=== PATIENT | male | born 2005 | race Caucasian/White ===

== ENCOUNTER 2024-08-24 15:21 | Inpatient (IN) | payer OTHER, SELFPAY ==
[2024-08-24 15:51] VITALS: BP 140/00; PULSE 60; O2SAT 99
[2024-08-24 16:12] VITALS: BP 173/89; PULSE 68; RESP 18; TEMP 36.8; O2SAT 97; BMI 23.5
[2024-08-24 17:08] LABS: Appearance Urine Clear; Color Urine Yellow; Glucose Urine UA Negative (Negative); Leukocyte Esterase Urine Negative (Negative); Nitrite Urine Negative (Negative); PH 5.5 (5.0-9.0); Specific Gravity - Urine <= 1.005 (1.005-1.025); Urine Blood Negative (Negative); Urine Ketones Negative (Negative); Urine Protein Negative (Neg-Trace)
[2024-08-24 17:10] LABS: Amphetamine Screen Urine Not Detected (Not Detect); Barbiturates, Urine Not Detected (Not Detect); Benzodiazepines Screen Urine Not Detected (Not Detect); Buprenorphine Scr Not Detected (Not Detect); Cannabinoid Screen Urine POSITIVE (Not Detect); Cocaine Screen Urine Not Detected (Not Detect); Fentanyl, urine Not Detected (Not Detect); Methadone Screen, Urine Not Detected (Not Detect); Opiate Screen Urine Not Detected (Not Detect); Oxycodone Screen Urine Not Detected (Not Detect); Phencyclidine Screen Urine Not Detected (Not Detect)
--- NOTE | 2024-08-24 17:54 | ED_ITS ---
HPI - Psych General Chief Complaint: Psychiatric Symptoms Stated Complaint: SI Time Seen by Provider: 08/24/24 16:03 Source: patient and EMS Mode of arrival: EMS Limitations: no limitations History of Present Illness ED Provider: Dr. Sherrie Madrid HPI Narrative: Patient comes to the emergency room via ambulance. At his job [employer], patient states that he made SI statements. Patient states that he said he went to kill himself. However, patient states that he really did not mean it, patient states that he has did not know how to express his frustration. They sent him on a Section 12. Related Data Allergies Allergy/AdvReac Type Severity Reaction Status Date / Time No Known Allergies Allergy Verified 08/24/24 16:15 Review of Systems 2 Review of Systems: Constitutional : No Weight loss, No Fever, No Chills, No Night Sweats, No Fatigue, No Malaise ENT/Mouth : No Hearing loss, No Ear Pain, No Nasal Congestion, No Sinus Pain, No Hoarseness, No sore throat, No Rhinorrhea, No Swallowing Difficulty Eyes: No Eye Pain, No Swelling, No Redness, No Foreign Body, No Discharge, No Vision Changes Cardiovascular : No Chest Pain, No SOB, No Dyspnea on Exertion, No Orthopnea, No Edema, No Palpitations Respiratory : No Cough, No Sputum, No Wheezing, No Smoke Exposure, No Dyspnea Gastrointestinal : No Nausea, No Vomiting, No Diarrhea, No Constipation, No abdominal Pain, No Hematochezia, No Melena Genitourinary : no irregular bleeding, No Dysuria, No Urinary Frequency, No Hematuria, No Urinary Incontinence, No Urgency, No Flank Pain, No Urinary Flow Changes, No Hesitancy Musculoskeletal : No joint pain, No Myalgias, No Joint Swelling Skin : No Skin Lesions, No rash Neuro : No Weakness, No Numbness, No Paresthesias, No Loss of Consciousness, No Dizziness, No Headache Psych : Complaining of anxiety, depression, denies SI or HI. However he admits that he made SI statements. Heme/Lymph: No Bruising, No Bleeding,No Lymphadenopathy Endocrine : No Polyuria, No Polydipsia, No Temperature Intolerance PMFSH Past Medical History Medical History (Updated 08/24/24 @ 20:30 by Sherrie Madrid MD) Depression Social History Social History Smoked in Last 30 Days: No Use of substances other than those prescribed or required for medical reasons: No Advance Directives: No Advance Directives Information Provided: No Do you have a plan to hurt others: No Plan Physical Exam 2 Vital Signs: Vital Signs: Last Vital Signs Temp 98.2 F 08/24/24 16:12 Pulse 68 08/24/24 16:12 Resp 18 08/24/24 16:12 BP 173/89 H 08/24/24 16:12 Pulse Ox 97 08/24/24 16:12 O2 Del Method Room Air 08/24/24 16:12 BMI result Body Mass Index 23.5 Const: Other: Appearance: Alert. Oriented X3. No acute distress. Eyes: Pupils equal, round and reactive to light. ENT: Pharynx normal. Neck: Normal inspection. Neck supple. No lymph nodes noted. No crepitus CVS: Normal heart rate and rhythm. Pulses normal. Normal S1 and S2 Respiratory: No respiratory distress. Breath sounds normal. No Wheezing. No rales Abdomen: Soft and nontender. No rigidity. No distention. Skin: Skin warm and dry. Normal skin color. Normal skin turgor. Extremities: No lower extremity edema. No Lacerations. No Rash Neuro: Oriented X 3. No motor deficit. No sensory deficit. Moving all extremities. No slurred speech. CN 2 through 12 grossly intact Psych: calm, cooperative, normal affect Medical Decision Making Medical Decision Making [facility] Narrative: My interpretation of labs: Patient's hematology, chemistry, urinalysis negative. ETOH negative, urine toxicology positive for THC Patient is on a Section 12, waiting for the care team We were informed by the care team that they had already seen the patient in the community in that he is on a Section 12 and inpatient bed search. Patient very upset, patient was not informed that he was an inpatient bed search. Patient states that he was told that he would be coming to the emergency room to get evaluated and then to be discharged. Also, we were not informed either that patient was not inpatient bed search, we just found out at this time. Patient agreeable to take anxiety medications, p.o. Ativan and Benadryl. Differential Diagnosis Differential Diagnoses: The differential diagnosis associated with the presentation includes (Anxiety, depression, suicidal ideation) Admission/Observation Consideration of admission/observation: Escalation of care including admission/observation considered (Patient is on a Section 12, inpatient bed search) Lab Data [facility] Lab Attestation statement: I reviewed the patient's lab results. 08/24/24 17:52 08/24/24 17:52 Labs: Lab Results 08/24/24 08/24/24 Range/Units 16:56 17:52 WBC 7.5 (4.8-10.8) X10*3/uL RBC 5.46 (4.60-5.80) X10*6/uL Hgb 16.4 (14.0-18.0) g/dl Hct 48.6 (42.0-52.0) % MCV 89.0 (80.0-98.0) fL MCH 30.0 (27.0-33.0) pg MCHC 33.7 (31.0-36.0) g/dl RDW 12.8 (11.0-16.0) % Plt Count 262 (160-400) X10*3/uL MPV 9.3 L (9.4-12.4) fL Immature Gran % (Auto) 0.4 (0.0-0.4) % Neut % (Auto) 61.1 (45-73) % Lymph % (Auto) 29.5 (20-40) % [place] % (Auto) 5.6 (2-11) % Eos % (Auto) 2.5 (0-4) % Baso % (Auto) 0.9 (0-2) % Lymph # (Auto) 2.2 (1.2-4.9) X10*3/uL [place] # (Auto) 0.4 (0.1-1.2) X10*3/uL Eos # (Auto) 0.2 (0.0-0.4) X10*3/uL Baso # (Auto) 0.1 (0.0-0.2) X10*3/uL Abs Immat Gran (auto) 0.03 (0.00-0.03) X10*3/uL Absolute Neuts (auto) 4.6 (2.0-8.3) x10*3/uL Absolute Nucleated RBC 0.000 (0.0-0.012) X10*3/uL Nucleated RBC % (auto) 0.0 (0.0-0.2) /100WBC Sodium 142 (135-145) mmol/L Potassium 4.0 (3.3-5.1) mmol/L Chloride 107 (96-108) mmol/L Carbon Dioxide 27 (22-29) mmol/L Anion Gap 12 (12-20) BUN 10 (9-16) mg/dL Creatinine 0.77 (0.5-1.4) mg/dL Estim Creat Clear Calc 143.0 Estimated GFR > 60 Random Glucose 94 (60-115) mg/dL Calcium 9.4 (8.4-10.2) mg/dL Total Bilirubin 0.6 (0.0-1.0) mg/dL Direct Bilirubin 0.1 (0.0-0.5) mg/dL AST 26 (5-37) U/L ALT 44 H (0-40) U/L Alkaline Phosphatase 76 (39-117) U/L Total Protein 7.8 (6.5-8.0) g/dL Albumin 4.8 (3.5-5.0) g/dL Urine Color Yellow Urine Appearance Clear Urine pH 5.5 (5.0-9.0) Ur Specific [place] <= 1.005 (1.005-1.025) Urine Protein Negative (Neg-Trace) mg/dL Urine Glucose (UA) Negative (Negative) mg/dL Urine Ketones Negative (Negative) mg/dL Urine Blood Negative (Negative) Urine Nitrite Negative (Negative) Ur Leukocyte Esterase Negative (Negative) Urine Opiates Screen Not Detected (Not Detect) Ur Buprenorphine Scrn Not Detected (Not Detect) ng/mL Ur Oxycodone Screen Not Detected (Not Detect) ng/mL Urine Methadone Screen Not Detected (Not Detect) ng/mL Urine Fentanyl Screen Not Detected (Not Detect) Ur Barbiturates Screen Not Detected (Not Detect) Ur Phencyclidine Scrn Not Detected (Not Detect) Ur Amphetamines Screen Not Detected (Not Detect) U Benzodiazepines Scrn Not Detected (Not Detect) Urine Cocaine Screen Not Detected (Not Detect) U Marijuana (THC) Screen POSITIVE H (Not Detect) Ethyl Alcohol < 10 mg/dL Discharge Plan Discharge Clinical Impression: Anxiety and depression Patient Disposition: Still a Patient Interventions: Sully-Suicide Risk Severity Scale Last Done: 08/24/24 16:52 Print Language: Nepali
[2024-08-24 17:57] LABS: MANUAL DIFF FLAG NO
[2024-08-24 18:02] LABS: Basophils Absolute Auto 0.1 X10*3/uL (0.0-0.2); Basophils Percent Auto 0.9 % (0-2); Eosinophils Absolute Auto 0.2 X10*3/uL (0.0-0.4); Eosinophils Percent Auto 2.5 % (0-4); Hematocrit 48.6 % (42.0-52.0); Hemoglobin 16.4 g/dl (14.0-18.0); Imm Gran Abs Auto 0.03 X10*3/uL (0.00-0.03); Imm Gran Pct Auto 0.4 % (0.0-0.4); Lymphocytes Absolute Auto 2.2 X10*3/uL (1.2-4.9); Lymphocytes Percent Auto 29.5 % (20-40); Mean Corpuscular HGB Conc 33.7 g/dl (31.0-36.0); Mean Platelet Volume 9.3 fL (9.4-12.4); Monocytes Absolute Auto 0.4 X10*3/uL (0.1-1.2); Monocytes Percent Auto 5.6 % (2-11); Neutrophils Absolute Auto 4.6 x10*3/uL (2.0-8.3); Neutrophils Percent Auto 61.1 % (45-73); Platelet Count 262 X10*3/uL (160-400); Red Blood Count 5.46 X10*6/uL (4.60-5.80); Red Cell Distribution Width 12.8 % (11.0-16.0); White Blood Count 7.5 X10*3/uL (4.8-10.8)
[2024-08-24 18:13] LABS: Alanine Aminotransferase 44 U/L (0-40); Albumin Level 4.8 g/dL (3.5-5.0); Alkaline Phosphatase 76 U/L (39-117); Anion Gap 12 (12-20); Aspartate Amino Transferase 26 U/L (5-37); Bilirubin Direct 0.1 mg/dL (0.0-0.5); Bilirubin Total 0.6 mg/dL (0.0-1.0); Blood Urea Nitrogen 10 mg/dL (9-16); Calcium 9.4 mg/dL (8.4-10.2); Carbon Dioxide 27 mmol/L (22-29); Chloride 107 mmol/L (96-108); Estimated Glomerular Filt Rate > 60; Ethanol < 10 mg/dL; Glucose Random 94 mg/dL (60-115); Sodium 142 mmol/L (135-145); Total Protein 7.8 g/dL (6.5-8.0)
--- NOTE | 2024-08-24 19:48 | PC.NURSE ---
Patient reports increased anxiety due to being in ED. Expressing frustration with being brought to ED and not talking to anyone from crisis/psych after being sent here from [facility]. Pt endorsed making vague SI statements at [facility] but states that he has difficulty expressing himself verbally at times. He stated I just need help to talk to someone, I don't want to hurt or kill myself or anyone else, but being here is getting me even more anxious and is making me worse! I feel like a prisoner. I can't have my phone to watch [employer] or anything, I'm in the hallway, and I'm being treated like a prisoner! [facility] told me that I'd be here for a few hours at most and then go home, and I've been here since 3pm . Offered the patient food/fluids, which he declined at this time. I spoke with CARE team staff members Kate & Cesar who came to patient's bedside to speak with him. Patient is anxious, but cooperating at this time. Sitter remains present. Section [address] CARE team to follow up and review the evaluation from earlier today to discuss plan. Awaiting review from CARE team & update on plan of care.
--- NOTE | 2024-08-24 20:28 | PC.NURSE ---
Per CARE team staff member (Cesar Forte), the patient was seen by [facility] in the community and placed on a section 12 for IPLOC. He is a bedsearch. Cesar stated via [employer]: he is a bedsearch now and we should have a bed for him tomorrow upstairs. I reviewed the assessment and I do not think disposition would change if he was reassessed tonight . Patient verbalized that he is willing to try PO anxiety medication to help him relax and hopefully get some sleep. Patient is aware of the plan for follow-up in the morning. Section [address] Sitter at bedside. Given warm blanket for comfort. aware that the patient is agreeable to PO medication for anxiety.
[2024-08-24] MEDS: diphenhydrAMINE HCL 25 MG CAPSULE 50 MG PO (20:38)
[2024-08-24] MEDS: LORazepam 1 MG TABLET 2 MG PO (20:38)
[2024-08-25] VITALS (7 sets, daily range): BP systolic 150–164; BP diastolic 83–92; PULSE 74–113; RESP 12–20; TEMP 36.3–36.6; O2SAT 95–99; BMI 27.9
--- NOTE | 2024-08-25 05:27 | PC.NURSE ---
Patient has been sleeping throughout the majority of this RN's shift. No acute distress noted. Visualized chest rise. Respirations even/unlabored. Sitter at bedside. Section 12 bedsearch continues with plan to speak with CARE team in the morning.
[2024-08-25] MEDS: OLANZapine 5 MG TABLET PO ×2 (10:19→20:29)
[2024-08-25] MEDS: diphenhydrAMINE HCL 25 MG CAPSULE 50 MG PO (10:19)
[2024-08-25] MEDS: LORazepam 1 MG TABLET PO (10:19)
--- NOTE | 2024-08-25 10:32 | PC.NURSE ---
Assumed care of patient at 1030, patient does appear to be anxious, pacing around BH pod. He endorses frustration with being here and feels like he was lied to about staying here. Patient is now resting in common area watching TV, calm and cooperative
--- NOTE | 2024-08-25 14:26 | PHA.MEDREC ---
Pharmacy Consult ? Medication Reconciliation Pharmacy reviewed med rec done by nursing. No Known Home Meds confirmed for med rec and looking at claims that matches.
[2024-08-25] MEDS: hydrOXYzine HCL 25 MG TABLET PO ×2 (18:25→20:29)
--- NOTE | 2024-08-25 19:03 | PC.NURSE ---
Pt admitted to M5 on a CV at 1800 from [facility] for [facility]. Safety/skin check unremarkable. VS obtained and documented. Pt received tour of unit. Pt provided with toiletries, fluids, and food. Pt cooperative on arrival, but expressed desire to discharge. Pt signed a three day notice. Admission to be completed by oncoming nurse.
[2024-08-25] MEDS: traZODone HCL 50 MG TABLET PO (20:29)
--- NOTE | 2024-08-25 22:15 | PC.ADMIT ---
Report received from previous shift. Patient was very anxious during admission process, but denied any SI, HI, AVH. He was cooperative with answering admission assessment questions. He was quite firm that he did not belong on M5, and said It was a mistake what I said . Karen said he was just anxious but not depressed. He hopes he will be discharged soon. Patient signed releases but could not remember the name of his PCP at [facility].
[2024-08-26 07:00] VITALS: BMI 27.9
[2024-08-26 07:52] LABS: Estimated Average Glucose 111 mg/dL; Hemoglobin A1c % 5.5 % (<6.0); Total Hemoglobin (HGBA1C) 4419.4856 umol/L
[2024-08-26 08:08] LABS: Cholesterol 208 mg/dL (<200); HDL Cholesterol 40 mg/dL (>40); LDL Cholesterol Calculated 145 mg/dL (<100); Triglycerides 118 mg/dL (<150)
[2024-08-26 08:20] VITALS: BP 147/69; PULSE 77; RESP 16; TEMP 36.2; O2SAT 98
[2024-08-26 08:25] LABS: TSH reflex Free T4 1.79 uIU/mL (0.32-4.0)
--- NOTE | 2024-08-26 09:53 | HO.PSYADMNOT ---
HPI Date of Service: 08/26/24 Chief Complaint: Depression/SI Sources of Information: patient interviewed, chart reviewed and crisis/core team assessment reviewed HPI Subjective Notes: Waters Warning, Conditional Voluntary and 3 Day Healthcare Proxy: No Guardianship: No Medical Problems Affecting Mental Status: No Narrative: 19 yo male, job [employer] participant, to ER after [facility] evaluation for SI with various plans. Pt is very upset and angry with this eval. You need to discharge me right now, I don't belong here, there are crazy people here and I was tricked to come here. We reviewed the crisis eval- pt reporting access to firearms, plan to strangle himself. NO, I WANT TO GO HOME NOW . Crisis has been called on me a few times when I was 13, [age], they never did this I will go to therapy I will take meds again but they made it worse. I have poor social skills and I am anxious here, I don't belong here. I am not suicidal My stress is through the roof . Crisis lied to me . Currently, pt is upset and is a poor historian. We discussed having him stay for the 72 hour assessment, concerns about his statements made to crisis and our obligation to him to sort this out and what we can offer from meds, Antidepressants make me wild Discussed other options and immediate options to help him calm and feel like he can participate. Pt not wanting group involvement. These people are CRAZY, I AM NOT CRAZY (pt cries). Assured pt that he is safe here and we are here to help him. Pt agrees to take medications. Ativan 1 mg and Olanzapine 5 mg ordered, which pt accepted and achieved relief, he was able to meet more reasonably with the rest of the team later in the day. Past Psychiatric History: IP: Denies OP: Denies SA: I did some head banging when I was a child SI: Denies Denies hx of cherelle, denies sx of psychosis. Voices are my inner monologue telling me I am inadequate Fears- I am scared to be here Medical Evaluation Reviewed: Yes [facility] Medical History (Updated 08/24/24 @ 20:30 by Sherrie Madrid MD) Depression Narrative: Denies Family History: Father Social History: Born in [place], raised by mom Has many half sibs but connects with a half sister and a step sister Rarely sees dad. 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 I would like to explode there Substance History: denies, toxicology postive for cannabis Trauma History: How did you know? Diagnostics Vital Signs (24Hr): Vital Signs - 24 hr 08/25/24 10:31 08/25/24 18:13 08/26/24 08:20 Temperature 97.9 F 97.2 F Pulse Rate 113 H 77 Respiratory Rate 16 16 16 Blood Pressure 150/83 H 147/69 H Pulse Oximetry 95 98 Oxygen Delivery Method Room Air Room Air BMI result Body Mass Index 27.9 Labs 08/24/24 17:52 08/24/24 17:52 Labs: Laboratory Results - last 48 hr 08/24/24 08/24/24 08/26/24 16:56 17:52 07:27 WBC 7.5 RBC 5.46 Hgb 16.4 Hct 48.6 MCV 89.0 MCH 30.0 MCHC 33.7 RDW 12.8 Plt Count 262 MPV 9.3 L Immature Gran % (Auto) 0.4 Neut % (Auto) 61.1 Lymph % (Auto) 29.5 [place] % (Auto) 5.6 Eos % (Auto) 2.5 Baso % (Auto) 0.9 Lymph # (Auto) 2.2 [place] # (Auto) 0.4 Eos # (Auto) 0.2 Baso # (Auto) 0.1 Abs Immat Gran (auto) 0.03 Absolute Neuts (auto) 4.6 Absolute Nucleated RBC 0.000 Nucleated RBC % (auto) 0.0 Sodium 142 Potassium 4.0 Chloride 107 Carbon Dioxide 27 Anion Gap 12 BUN 10 Creatinine 0.77 Estim Creat Clear Calc 143.0 Estimated GFR > 60 Random Glucose 94 Estimat Average Glucose 111 Hemoglobin A1c % 5.5 Calcium 9.4 Total Bilirubin 0.6 Direct Bilirubin 0.1 AST 26 ALT 44 H Alkaline Phosphatase 76 Total Protein 7.8 Albumin 4.8 Triglycerides 118 Cholesterol 208 H LDL Cholesterol, Calc 145 H HDL Cholesterol 40 L TSH 1.79 Urine Color Yellow Urine Appearance Clear Urine pH 5.5 Ur Specific [place] <= 1.005 Urine Protein Negative Urine Glucose (UA) Negative Urine Ketones Negative Urine Blood Negative Urine Nitrite Negative Ur Leukocyte Esterase Negative Urine Opiates Screen Not Detected Ur Buprenorphine Scrn Not Detected Ur Oxycodone Screen Not Detected Urine Methadone Screen Not Detected Urine Fentanyl Screen Not Detected Ur Barbiturates Screen Not Detected Ur Phencyclidine Scrn Not Detected Ur Amphetamines Screen Not Detected U Benzodiazepines Scrn Not Detected Urine Cocaine Screen Not Detected U Marijuana (THC) Screen POSITIVE H Ethyl Alcohol < 10 Meds/Allergies Meds Home Medications ?Medication ?Instructions ?Recorded ?Confirmed ?Type No Known Home Meds 08/25/24 08/25/24 History Allergies Allergies Allergy/AdvReac Type Severity Reaction Status Date / Time No Known Allergies Allergy Verified 08/24/24 16:15 Mental Status Exam Mental Status Exam Patient Appearance: Appropriate Patient Orientation: Person, Place and Time Level of Consciousness: Restless and Alert Patient Behavior: Talkative, Cooperative, Suspicious, Restless, Anxious, Fearful, Resistive to Care, Distractible, Crying and Poor Eye Contact Mood Description: Fearful, Labile and Angry Affect Description: Labile Patient Cognition Impaired: No Ability to Follow Directions: Good Speech Pattern: Clear and Spontaneous Speech Memory Description: Intact Hallucinations: None Delusions: Paranoid Ideation Perceptual Disturbances: Depersonalization and Derealization Thought Process: Illogical, Distracted and Rumination Thought Content: positive for Circumstantial, positive for Perseveration, positive for Preoccupation and positive for Suicidal Ideation (denies) Depressive Symptoms: Increased Irritability, Difficulty Sleeping and Hopelessness Abnormal Motor Activity Signs and Symptoms: Agitation and Restlessness Judgement: Poor Assessment & Plan Assessment & Plan (1) Anxiety and depression: Status: Acute Code(s): F41.9 - Anxiety disorder, unspecified; F32.A - Depression, unspecified Plan Depression, ?PTSD vis Mood Disorder, ?Autism Plan: Admit, CV, TDN, 15 minute checks Diagnostics as needed Collateral Contact Encourage milieu Ativan 1 mg x 1 and Olanzapine 5 mg x 1 Zyprexa 5 mg bid Trileptal 300 mg bid Pt reports antidepressants have made sx intensify Discharge and aftercare planning. Patient educated on: medication risk/benefits and therapeutic strategies Reason for continued inpatient stay Substantial Risk for: rapid decompensation Statement Statement: I have reviewed the history and physical and performed a pertinent examination on my patient. No changes have occurred unless specified. If the History and Physical was not performed prior to admission, the Hospitalist's service will be consulted for completing the admission physical. Time Spent With Patient Time: Total time managing care of this patient today ____ minutes.
[2024-08-26] MEDS: hydrOXYzine HCL 25 MG TABLET PO (12:26)
[2024-08-26] MEDS: OLANZapine 5 MG TABLET PO ×3 (12:26→21:07)
[2024-08-26] MEDS: LORazepam 1 MG TABLET PO (13:56)
[2024-08-26] MEDS: OXcarbazepine 300 MG TABLET PO ×2 (13:56→21:07)
[2024-08-26 20:00] VITALS: BP 137/90; PULSE 110; RESP 16; TEMP 36.6; O2SAT 97
[2024-08-27 08:00] VITALS: BP 159/74; PULSE 74; RESP 18; TEMP 36.2; O2SAT 98
[2024-08-27] MEDS: OXcarbazepine 300 MG TABLET PO ×2 (08:58→20:29)
[2024-08-27] MEDS: OLANZapine 5 MG TABLET PO ×3 (08:58→20:26)
--- NOTE | 2024-08-27 12:07 | HO.PSYCHPN ---
Subjective Subjective Date of Service: 08/27/24 Reason For Visit: Depression/SI Subjective Notes: Conditional Voluntary Interim History: Active on unit, social with peers. Pt reports feeling okay today; pt stated, I'm just missing my family. I think the meds are working . Pt reports sleeping well last night. denies SI/HI/VH/AH. Medication Compliance: Yes Side effects from medications: No Attending Groups: Yes Mental Status Exam Mental Status Exam Patient Appearance: Well Grooomed Patient Orientation: Person, Place, Time and Situation Level of Consciousness: Awake and Alert Patient Behavior: Appropriate and Cooperative Mood Description: Calm Affect Description: Calm Ability to Follow Directions: Good Speech Pattern: Clear and Appropriate Memory Description: Intact Hallucinations: None Delusions: Not Present Thought Process: Intact Thought Content: positive for Intact Judgement: Fair Diagnostics Vital Signs (24Hr): Vital Signs - 24 hr 08/26/24 20:00 08/27/24 08:00 Temperature 97.8 F 97.1 F Pulse Rate 110 H 74 Respiratory Rate 16 18 Blood Pressure 137/90 H 159/74 H Pulse Oximetry 97 98 Oxygen Delivery Method Room Air Room Air BMI result Body Mass Index 27.9 Labs 08/24/24 17:52 08/24/24 17:52 Labs: Laboratory Results - last 48 hr 08/26/24 07:27 Estimat Average Glucose 111 Hemoglobin A1c % 5.5 Triglycerides 118 Cholesterol 208 H LDL Cholesterol, Calc 145 H HDL Cholesterol 40 L TSH 1.79 Medications Medications Current Medications Acetaminophen (Acetaminophen 325 Mg Tablet) 650 mg PO Q6H PRN PRN Reason: Headache/Pain Mild Scale (1-3) Al Hydroxide/Mg Hydroxide (Magnesium Hydrox/Alum Hydrox 30 Ml Oral.Susp) 30 ml PO Q6H PRN PRN Reason: Heartburn/Nausea Hydroxyzine HCl (Hydroxyzine Hcl 25 Mg Tablet) 25 mg PO Q6H PRN PRN Reason: Anxiety Last Admin: 08/26/24 12:26 Dose: 25 mg Magnesium Hydroxide (Milk Of Magnesia 30 Ml Oral.Susp) 30 ml PO DAILY PRN PRN Reason: Constipation Nicotine (Nicotine 21 Mg Patch.Td24) 21 mg TRANSDERMA DAILY PRN PRN Reason: smoking cessation Nicotine Polacrilex (Nicotine Polacrilex 2 Mg Gum) 4 mg BUCCAL Q2H PRN PRN Reason: Nicotine Cravings Olanzapine (Olanzapine 5 Mg Tablet) 5 mg PO TID PRN PRN Reason: agitation Last Admin: 08/26/24 12:26 Dose: 5 mg Olanzapine (Olanzapine 5 Mg Tablet) 5 mg PO BID KUSHAL Last Admin: 08/27/24 08:58 Dose: 5 mg Oxcarbazepine (Oxcarbazepine 300 Mg Tablet) 300 mg PO BID KUSHAL Last Admin: 08/27/24 08:58 Dose: 300 mg Trazodone HCl (Trazodone Hcl 50 Mg Tablet) 50 mg PO BEDTIME MRX1 PRN PRN Reason: Insomnia Last Admin: 08/25/24 20:29 Dose: 50 mg Allergies Allergies Allergy/AdvReac Type Severity Reaction Status Date / Time No Known Allergies Allergy Verified 08/24/24 16:15 Assessment & Plan Assessment & Plan (1) Anxiety and depression: Status: Acute Code(s): F41.9 - Anxiety disorder, unspecified; F32.A - Depression, unspecified Plan Depression, ?PTSD vis Mood Disorder, ?Autism Plan: Admit, CV, TDN, 15 minute checks Diagnostics as needed Collateral Contact Encourage milieu Ativan 1 mg x 1 and Olanzapine 5 mg x 1 Zyprexa 5 mg bid Trileptal 300 mg bid Pt reports antidepressants have made sx intensify Discharge and aftercare planning. 08/27: continue current tx plan. Patient educated on: diagnosis and medication risk/benefits Reason for continued inpatient stay Substantial Risk for: med/psych decompensation Time Spent With Patient Time: Total time managing care of this patient today _20___ minutes.
[2024-08-27] MEDS: hydrOXYzine HCL 25 MG TABLET PO (13:03)
[2024-08-27 20:00] VITALS: BP 139/82; PULSE 100; RESP 16; TEMP 36.3; O2SAT 96
[2024-08-27] MEDS: traZODone HCL 50 MG TABLET PO (20:26)
[2024-08-28] MEDS: OLANZapine 5 MG TABLET PO ×2 (08:47→20:31)
[2024-08-28] MEDS: OXcarbazepine 300 MG TABLET PO ×2 (08:47→20:31)
--- NOTE | 2024-08-28 08:51 | P.PNPSI_ITS ---
Subjective Subjective Date of Service: 08/28/24 Reason For Visit: Depression/SI Subjective Notes: 3 Day Interim History: Met with pt. Discussed with nursing. Pleasant and engaged and less irritable with staff. Feels the medications have been helpful. Reports he was having panic and anxiety attacks but now feels relaxed. Is surprised that medications have been helpful. Talked about home situation and how overall this is stable and looking forward to returning there, where he lives on the 2nd floor of a 3 family with his grandfather. Otherwise attending groups, engaging well with peers and utilizing headphones. Medication Compliance: Yes Side effects from medications: No Attending Groups: Yes Review of Systems Acute medical concerns: No Review of Systems Review of Systems Unremarkable Mental Status Exam Mental Status Exam Patient Appearance: Well Grooomed Patient Orientation: Person, Place, Time and Situation Level of Consciousness: Awake and Alert Patient Behavior: Appropriate and Cooperative Mood Description: Calm Affect Description: Calm Patient Cognition Impaired: No Ability to Follow Directions: Good Speech Pattern: Clear and Appropriate Memory Description: Intact Judgement: Fair Diagnostics Vital Signs (24Hr): Vital Signs - 24 hr 08/27/24 20:00 Temperature 97.4 F Pulse Rate 100 Respiratory Rate 16 Blood Pressure 139/82 Pulse Oximetry 96 Oxygen Delivery Method Room Air BMI result Body Mass Index 27.9 Labs 08/24/24 17:52 08/24/24 17:52 Medications Medications Current Medications Acetaminophen (Acetaminophen 325 Mg Tablet) 650 mg PO Q6H PRN PRN Reason: Headache/Pain Mild Scale (1-3) Al Hydroxide/Mg Hydroxide (Magnesium Hydrox/Alum Hydrox 30 Ml Oral.Susp) 30 ml PO Q6H PRN PRN Reason: Heartburn/Nausea Hydroxyzine HCl (Hydroxyzine Hcl 25 Mg Tablet) 25 mg PO Q6H PRN PRN Reason: Anxiety Last Admin: 08/27/24 13:03 Dose: 25 mg Magnesium Hydroxide (Milk Of Magnesia 30 Ml Oral.Susp) 30 ml PO DAILY PRN PRN Reason: Constipation Nicotine (Nicotine 21 Mg Patch.Td24) 21 mg TRANSDERMA DAILY PRN PRN Reason: smoking cessation Nicotine Polacrilex (Nicotine Polacrilex 2 Mg Gum) 4 mg BUCCAL Q2H PRN PRN Reason: Nicotine Cravings Olanzapine (Olanzapine 5 Mg Tablet) 5 mg PO TID PRN PRN Reason: agitation Last Admin: 08/27/24 16:10 Dose: 5 mg Olanzapine (Olanzapine 5 Mg Tablet) 5 mg PO BID [facility] Last Admin: 08/28/24 08:47 Dose: 5 mg Oxcarbazepine (Oxcarbazepine 300 Mg Tablet) 300 mg PO BID [facility] Last Admin: 08/28/24 08:47 Dose: 300 mg Trazodone HCl (Trazodone Hcl 50 Mg Tablet) 50 mg PO BEDTIME MRX1 PRN PRN Reason: Insomnia Last Admin: 08/27/24 20:26 Dose: 50 mg Allergies Allergies Allergy/AdvReac Type Severity Reaction Status Date / Time No Known Allergies Allergy Verified 08/24/24 16:15 Assessment & Plan Assessment & Plan (1) Anxiety and depression: Status: Acute Code(s): F41.9 - Anxiety disorder, unspecified; F32.A - Depression, unspecified Plan Depression, ?PTSD vis Mood Disorder, ?Autism Plan: Admit, CV, TDN, 15 minute checks Diagnostics as needed Collateral Contact Encourage milieu Ativan 1 mg x 1 and Olanzapine 5 mg x 1 Zyprexa 5 mg bid Trileptal 300 mg bid Pt reports antidepressants have made sx intensify Discharge and aftercare planning. 08/27: continue current tx plan. 08/28: no changes. [address] Reason for continued inpatient stay Substantial Risk for: rapid decompensation Time Spent With Patient Time: Total time managing care of this patient today ____ minutes.
[2024-08-28 09:17] VITALS: BP 126/63; PULSE 72; RESP 18; TEMP 36.4; O2SAT 97
[2024-08-28] MEDS: hydrOXYzine HCL 25 MG TABLET PO (14:53)
[2024-08-28 20:00] VITALS: BP 125/79; PULSE 77; RESP 18; TEMP 36.6; O2SAT 97
[2024-08-29] MEDS: OLANZapine 5 MG TABLET PO ×2 (07:56→20:13)
[2024-08-29] MEDS: OXcarbazepine 300 MG TABLET PO ×2 (07:56→20:13)
[2024-08-29] MEDS: Acetaminophen 325 MG TABLET 650 MG PO (08:52)
[2024-08-29 09:11] VITALS: BP 129/79; PULSE 79; RESP 18; TEMP 36.6; O2SAT 96
--- NOTE | 2024-08-29 09:43 | HO.PSYCHPN ---
Subjective Subjective Date of Service: 08/29/24 Reason For Visit: Depression/SI Interim History: Met with pt. Discussed with nursing. Nausea and vomiting. Sleep poor last night- would like meds scheduled versus prn. Pleasant and engaged and still feels the medications have been helpful- feels relaxed. Engaging well with peers when out of room Medication Compliance: Yes Side effects from medications: No Attending Groups: Intermittent Review of Systems Acute medical concerns: No Review of Systems Review of Systems Nausea/vomit Mental Status Exam Mental Status Exam Patient Appearance: Well Grooomed Patient Orientation: Person, Place, Time and Situation Level of Consciousness: Awake and Alert Patient Behavior: Appropriate and Cooperative Mood Description: Calm Affect Description: Calm Patient Cognition Impaired: No Ability to Follow Directions: Good Speech Pattern: Clear and Appropriate Memory Description: Intact Diagnostics Vital Signs (24Hr): Vital Signs - 24 hr 08/28/24 20:00 08/29/24 09:11 Temperature 97.9 F 97.8 F Pulse Rate 77 79 Respiratory Rate 18 18 Blood Pressure 125/79 129/79 Pulse Oximetry 97 96 Oxygen Delivery Method Room Air Room Air BMI result Body Mass Index 27.9 Labs 08/24/24 17:52 08/24/24 17:52 Medications Medications Current Medications Acetaminophen (Acetaminophen 325 Mg Tablet) 650 mg PO Q6H PRN PRN Reason: Headache/Pain Mild Scale (1-3) Last Admin: 08/29/24 08:52 Dose: 650 mg Al Hydroxide/Mg Hydroxide (Magnesium Hydrox/Alum Hydrox 30 Ml Oral.Susp) 30 ml PO Q6H PRN PRN Reason: Heartburn/Nausea Hydroxyzine HCl (Hydroxyzine Hcl 25 Mg Tablet) 25 mg PO Q6H PRN PRN Reason: Anxiety Last Admin: 08/28/24 14:53 Dose: 25 mg Magnesium Hydroxide (Milk Of Magnesia 30 Ml Oral.Susp) 30 ml PO DAILY PRN PRN Reason: Constipation Nicotine (Nicotine 21 Mg Patch.Td24) 21 mg TRANSDERMA DAILY PRN PRN Reason: smoking cessation Nicotine Polacrilex (Nicotine Polacrilex 2 Mg Gum) 4 mg BUCCAL Q2H PRN PRN Reason: Nicotine Cravings Olanzapine (Olanzapine 5 Mg Tablet) 5 mg PO TID PRN PRN Reason: agitation Last Admin: 08/27/24 16:10 Dose: 5 mg Olanzapine (Olanzapine 5 Mg Tablet) 5 mg PO BID [facility] Last Admin: 08/29/24 07:56 Dose: 5 mg Oxcarbazepine (Oxcarbazepine 300 Mg Tablet) 300 mg PO BID [facility] Last Admin: 08/29/24 07:56 Dose: 300 mg Trazodone HCl (Trazodone Hcl 50 Mg Tablet) 50 mg PO BEDTIME MRX1 PRN PRN Reason: Insomnia Last Admin: 08/27/24 20:26 Dose: 50 mg Allergies Allergies Allergy/AdvReac Type Severity Reaction Status Date / Time No Known Allergies Allergy Verified 08/24/24 16:15 Assessment & Plan Assessment & Plan (1) Anxiety and depression: Status: Acute Code(s): F41.9 - Anxiety disorder, unspecified; F32.A - Depression, unspecified Plan Depression, ?PTSD vis Mood Disorder, ?Autism Plan: Admit, CV, TDN, 15 minute checks Diagnostics as needed Collateral Contact Encourage milieu Ativan 1 mg x 1 and Olanzapine 5 mg x 1 Zyprexa 5 mg bid Trileptal 300 mg bid Pt reports antidepressants have made sx intensify Discharge and aftercare planning. 08/27: continue current tx plan. 08/28: no changes. [address] 08/29: schedule trazodone 50mg. Zofran for N/V and encourage fluids as tolerated Reason for continued inpatient stay Substantial Risk for: rapid decompensation Time Spent With Patient Time: Total time managing care of this patient today ____ minutes.
[2024-08-29] MEDS: Ondansetron ODT 8 MG TAB.RAPDIS TRANSLINGU (14:05)
[2024-08-29] MEDS: Loperamide HCl 2 MG CAPSULE 4 MG PO (14:55)
[2024-08-29 15:01] LABS: Influenza A PCR NEGATIVE (Negative); Influenza B PCR NEGATIVE (Negative); Resp Syncy Virus RNA Qual PCR NEGATIVE (Negative); SARS COV2 PCR INHOUSE NEGATIVE (Negative)
[2024-08-29] MEDS: hydrOXYzine HCL 25 MG TABLET PO (20:13)
[2024-08-29] MEDS: traZODone HCL 50 MG TABLET PO (20:14)
--- NOTE | 2024-08-30 03:30 | PC.NURSE ---
Patient signed a 3 day notice 08/25/24 that is up Friday08/30/24, , GHANSHYAM and UR notified.
[2024-08-30 08:10] VITALS: BP 149/74; PULSE 114; RESP 18; TEMP 37.9; O2SAT 95
[2024-08-30] MEDS: OLANZapine 5 MG TABLET PO (08:32)
[2024-08-30] MEDS: Acetaminophen 325 MG TABLET 650 MG PO (08:32)
[2024-08-30] MEDS: OXcarbazepine 300 MG TABLET PO (08:32)
--- NOTE | 2024-08-30 10:46 | P.DS_ITS ---
DS: Providers Provider Date of Service: 08/30/24 Date of admission: 08/25/24 14:25 Date of discharge: 08/30/24 Primary care physician: Unknown Physician Admitting clinician: Rika Cadet Attending physician on admission: Jalen Nicole Attending physician on discharge: Jalen Nicole Discharging clinician: Rika Cadet DS: Diagnosis Discharge Diagnosis (1) Anxiety and depression: Status: Acute DS: Medications Discharge Medications Home Medications: Home Medications ?Medication ?Instructions ?Recorded ?Confirmed No Known Home Meds 08/25/24 08/25/24 Previous Rx's ?Medication ?Instructions ?Recorded hydroxyzine HCl 25 mg tablet 25 mg PO Q6H PRN Anxiety #15 tabs 08/30/24 olanzapine 5 mg tablet 5 mg PO BID #30 tabs 08/30/24 oxcarbazepine 300 mg tablet 300 mg PO BID #30 tabs 08/30/24 trazodone 50 mg tablet 50 mg PO BEDTIME #15 tabs 08/30/24 Mental Status Exam Mental Status Exam Patient Appearance: Well Grooomed Patient Orientation: Person, Place, Time and Situation Level of Consciousness: Awake and Alert Patient Behavior: Appropriate and Cooperative Mood Description: Calm Affect Description: Calm Patient Cognition Impaired: No Ability to Follow Directions: Good Speech Pattern: Clear and Appropriate Memory Description: Intact Data Data Completed and Pending Completed studies during hospitalization [Text1]: 08/24/24 08/24/24 08/26/24 16:56 17:52 07:27 WBC 7.5 RBC 5.46 Hgb 16.4 Hct 48.6 MCV 89.0 MCH 30.0 MCHC 33.7 RDW 12.8 Plt Count 262 MPV 9.3 L Immature Gran % (Auto) 0.4 Neut % (Auto) 61.1 Lymph % (Auto) 29.5 [place] % (Auto) 5.6 Eos % (Auto) 2.5 Baso % (Auto) 0.9 Lymph # (Auto) 2.2 [place] # (Auto) 0.4 Eos # (Auto) 0.2 Baso # (Auto) 0.1 Abs Immat Gran (auto) 0.03 Absolute Neuts (auto) 4.6 Absolute Nucleated RBC 0.000 Nucleated RBC % (auto) 0.0 Sodium 142 Potassium 4.0 Chloride 107 Carbon Dioxide 27 Anion Gap 12 BUN 10 Creatinine 0.77 Estim Creat Clear Calc 143.0 Estimated GFR > 60 Random Glucose 94 Estimat Average Glucose 111 Hemoglobin A1c % 5.5 Calcium 9.4 Total Bilirubin 0.6 Direct Bilirubin 0.1 AST 26 ALT 44 H Alkaline Phosphatase 76 Total Protein 7.8 Albumin 4.8 Triglycerides 118 Cholesterol 208 H LDL Cholesterol, Calc 145 H HDL Cholesterol 40 L TSH 1.79 Urine Color Yellow Urine Appearance Clear Urine pH 5.5 Ur Specific [place] <= 1.005 Urine Protein Negative Urine Glucose (UA) Negative Urine Ketones Negative Urine Blood Negative Urine Nitrite Negative Ur Leukocyte Esterase Negative Urine Opiates Screen Not Detected Ur Buprenorphine Scrn Not Detected Ur Oxycodone Screen Not Detected Urine Methadone Screen Not Detected Urine Fentanyl Screen Not Detected Ur Barbiturates Screen Not Detected Ur Phencyclidine Scrn Not Detected Ur Amphetamines Screen Not Detected U Benzodiazepines Scrn Not Detected Urine Cocaine Screen Not Detected U Marijuana (THC) Screen POSITIVE H Ethyl Alcohol < 10 Influenza Type A (PCR) Influenza Type B (PCR) RSV RNA Qual (PCR) SARS-CoV-2 RNA (RT-PCR) 08/29/24 14:11 WBC RBC Hgb Hct MCV MCH MCHC RDW Plt Count MPV Immature Gran % (Auto) Neut % (Auto) Lymph % (Auto) [place] % (Auto) Eos % (Auto) Baso % (Auto) Lymph # (Auto) [place] # (Auto) Eos # (Auto) Baso # (Auto) Abs Immat Gran (auto) Absolute Neuts (auto) Absolute Nucleated RBC Nucleated RBC % (auto) Sodium Potassium Chloride Carbon Dioxide Anion Gap BUN Creatinine Estim Creat Clear Calc Estimated GFR Random Glucose Estimat Average Glucose Hemoglobin A1c % Calcium Total Bilirubin Direct Bilirubin AST ALT Alkaline Phosphatase Total Protein Albumin Triglycerides Cholesterol LDL Cholesterol, Calc HDL Cholesterol TSH Urine Color Urine Appearance Urine pH Ur Specific [place] Urine Protein Urine Glucose (UA) Urine Ketones Urine Blood Urine Nitrite Ur Leukocyte Esterase Urine Opiates Screen Ur Buprenorphine Scrn Ur Oxycodone Screen Urine Methadone Screen Urine Fentanyl Screen Ur Barbiturates Screen Ur Phencyclidine Scrn Ur Amphetamines Screen U Benzodiazepines Scrn Urine Cocaine Screen U Marijuana (THC) Screen Ethyl Alcohol Influenza Type A (PCR) NEGATIVE Influenza Type B (PCR) NEGATIVE RSV RNA Qual (PCR) NEGATIVE SARS-CoV-2 RNA (RT-PCR) NEGATIVE DS: Summary Hospital Course Hospital Course: Admission to adult psychiatry for exacerbation of depression with SI and mood dysregulation. Medications were evaluated and initiated for mood stabilization. Pt completed a three day assessment of current presenting sx. He agreed to continue medications and accepted an out patient referral for ongoing care post discharge Status at Discharge Functional status at discharge: independent ambulation Overall status at discharge: patient is back to baseline Time Spent with Patient Time attestation: Total time managing care of this patient today ____ minutes. Time spent: Less than 30 minutes Discharge Plan Discharge Anticipated Discharge Date/Time: 08/30/24 12:00 Patient Disposition: Home, Self-Care Discharge Diagnosis: Mood Disorder Referrals: [facility] [Other] - 1 Day (You can start back to [facility] tomorrow at your regular time.) [facility] [Other] - 1 Week (Leanna Jean will facilitate psychiatry appt through [facility] and therapy as needed. SW recommends weekly therapy and added support with creating a routine that focuses on self care, including identifying a friend group/peer support group.) [facility] ([facility]) [Other] - 1 Week (SW recommends utilizing [facility] ([facility]) as an alternative to inpatient admissions that can help redirect critical stressors in a therapeutic environment. [facility] program delivers services as an alternative to hospital emergency departments and psychiatric hospitalization. It also offers respite, outreach, medication management, and peer-level support.) Physician,Unknown J [Primary Care Provider] - 1 Week Discharge Medications: New trazodone 50 mg Tablet 50 mg PO BEDTIME Qty: 15 1RF olanzapine 5 mg Tablet 5 mg PO BID Qty: 30 1RF oxcarbazepine 300 mg Tablet 300 mg PO BID Qty: 30 1RF hydroxyzine HCl 25 mg Tablet 25 mg PO Q6H PRN (Reason: Anxiety) Qty: 15 1RF No Action No Known Home Meds Discharge Orders: Discharge Order (Routine); Ordered 08/30/24 Ordered By: Rika Cadet Diet: Advance to usual diet Activity on Discharge: As tolerated Stand Alone Forms: Patient Portal Discharge page, Community Support Print Language: Belarusian Care Plan Goals: Mood and Behavioral Stabilization Health Concerns: Mood and Behavioral Stabilization Plan of Treatment: Attend scheduled appointments Take medications as directed Assessment: Denies SI,HI, AH,VH No sx of acute cherelle or psychosis Has completed 72 hour assessment period Agrees with plan of care Discharge Date/Time: 08/30/24 11:48
== END 2024-08-30 11:48 | disposition home or self-care (01) | DRG 754 ==
LOC: HO.ED 08-25 10:23 → HO.PM5 08-25 14:26
PROVIDERS: Psychiatry & Neurology Psychiatry; Admitting Provider Psychiatry & Neurology Psychiatry; Emergency Provider Emergency Medicine; Visit Provider Psychiatry & Neurology Psychiatry
DX: F32.A Depression, unspecified (principal); R45.851 Suicidal ideations; F41.9 Anxiety disorder, unspecified; Z20.822 Contact with and (suspected) exposure to COVID-19; Z79.899 Other long term (current) drug therapy
CPT/HCPCS: 0241U; 36415; 80048; 80061; 80076; 80307; 81003; 83036; 84443; 85025; 99285

== ENCOUNTER → 2024-08-25 14:25 | Outpatient (BNV) | payer OTHER, SELFPAY | PROVIDERS: Admitting Provider Psychiatry & Neurology Psychiatry; Emergency Provider Emergency Medicine; Visit Provider Psychiatry & Neurology Psychiatry | DX: F32.2 Major depressive disorder, single episode, severe without psychotic features (principal); F41.9 Anxiety disorder, unspecified | CPT/HCPCS: 90792; 99231; 99232 ==